=== PATIENT | female | born 1965 | race African-American/Black ===

== ENCOUNTER 2021-10-07 10:04 | Day surgery (SDC) | payer BC ==
[2021-10-06 13:01] VITALS: BMI 21.6
[2021-10-07 10:23] VITALS: TEMP 98.4
[2021-10-07 11:36] VITALS: BP 129/79; PULSE 80
== END 2021-10-07 11:45 | disposition home or self-care (01) ==
LOC: FASU-ENDO 10:04
PROVIDERS: ATTEND Internal Medicine Gastroenterology
PROC: 0DB68ZX Excision of Stomach, Via Natural or Artificial Opening Endoscopic, Diagnostic (ICD-10-PCS; 2021-10-07)
PROC: 0DB28ZX Excision of Middle Esophagus, Via Natural or Artificial Opening Endoscopic, Diagnostic (ICD-10-PCS; 2021-10-07)
PROC: 0DB48ZX Excision of Esophagogastric Junction, Via Natural or Artificial Opening Endoscopic, Diagnostic (ICD-10-PCS; 2021-10-07)
PROC: 0DB98ZX Excision of Duodenum, Via Natural or Artificial Opening Endoscopic, Diagnostic (ICD-10-PCS; principal; 2021-10-07 10:50)
DX: K29.50 Unspecified chronic gastritis without bleeding (principal); K21.00 Gastro-esophageal reflux disease with esophagitis, without bleeding; R13.10 Dysphagia, unspecified
CPT/HCPCS: 88305-TC; 88342-TC